=== PATIENT | female | born 1970 | race Caucasian/White ===

== ENCOUNTER 2021-06-10 22:10 | Inpatient (IN) | payer BC, OTHER ==
[2021-06-10] MEDS ORDERED: DEXAMETHASONE SOD PHOSPHATE 10 MG/ML 1 ML VIAL IVP STA (22:26)
--- NOTE | 2021-06-10 22:39 | ED ---
General Adult HPI - General Chief complaint: Shortness of Breath Stated complaint: covid symptoms Time Seen by Provider: 06/10/21 22:12 Source: patient, RN notes reviewed Mode of arrival: ambulatory Limitations: no limitations - History of Present Illness Initial comments: is a 51-year-old female presents emergency Department chief complaint of COVID-19. Patient discussed positive at PCPs office. Patient states that she was placed on some antibiotics states his symptoms are getting worse. Patient states she was supposed to get monoclonal antibodies bolus level scheduled by her PCP. She's been having increasing extreme shortness of breath no fever or chills mild headache and mild body aches and congestion. No history of asthma or COPD. Patient states her pulse ox at home was 82% - Related Data Allergies Allergy/AdvReac Type Severity Reaction Status Date / Time No Known Allergies Allergy Verified 06/10/21 22:18 Review of Systems ROS Statement: Those systems with pertinent positive or pertinent negative responses have been documented in the HPI. ROS Other: All systems not noted in ROS Statement are negative. Past Medical History Past Medical History: No Reported History History of Any Multi-Drug Resistant Organisms: None Reported Additional Past Surgical History / Comment(s): orthopedic Past Psychological History: No Psychological Hx Reported Smoking Status: Never smoker Past Alcohol Use History: Occasional Past Drug Use History: None Reported General Exam Limitations: no limitations General appearance: alert, in no apparent distress Head exam: Present: atraumatic, normocephalic, normal inspection Eye exam: Present: normal appearance, PERRL, EOMI. Absent: scleral icterus, conjunctival injection, periorbital swelling ENT exam: Present: normal exam, normal oropharynx, mucous membranes moist Neck exam: Present: normal inspection, full ROM. Absent: tenderness, meningismus, lymphadenopathy Respiratory exam: Present: normal lung sounds bilaterally. Absent: respiratory distress, wheezes, rales, rhonchi, stridor Cardiovascular Exam: Present: normal rhythm, tachycardia, normal heart sounds. Absent: systolic murmur, diastolic murmur, rubs, gallop, clicks GI/Abdominal exam: Present: soft, normal bowel sounds. Absent: distended, tenderness, guarding, rebound, rigid Neurological exam: Present: alert, oriented X3 Course Vital Signs 06/10/21 06/11/21 22:14 00:18 Temperature 97.7 F Pulse Rate 110 H 97 Respiratory 18 20 Rate Blood Pressure 179/109 130/82 O2 Sat by Pulse 89 L 97 Oximetry EKG Findings - EKG Comments: EKG Findings:: EKG performed at 0:01 sinus tachycardia rate of 101. pr 158 QRS 80 QT/QTC 3:30/427 Medical Decision Making - Medical Decision Making 51-year-old female presents from for shortness breath. Patient has COVID-19 pneumonia with hypoxia will be admitted for further treatment and management. - Lab Data Result diagrams: 06/10/21 22:35 06/10/21 22:35 Lab Results 06/10/21 06/10/21 Range/Units 22:35 22:35 WBC 6.0 (3.8-10.6) k/uL RBC 5.12 (3.80-5.40) m/uL Hgb 10.3 L (11.4-16.0) gm/dL Hct 33.7 L (34.0-46.0) % MCV 65.7 L (80.0-100.0) fL MCH 20.1 L (25.0-35.0) pg MCHC 30.6 L (31.0-37.0) g/dL RDW 15.6 H (11.5-15.5) % Plt Count 199 (150-450) k/uL MPV 9.3 Neutrophils % 71 % Lymphocytes % 18 % Monocytes % 8 % Eosinophils % 0 % Basophils % 1 % Neutrophils # 4.3 (1.3-7.7) k/uL Lymphocytes # 1.1 (1.0-4.8) k/uL Monocytes # 0.5 (0-1.0) k/uL Eosinophils # 0.0 (0-0.7) k/uL Basophils # 0.0 (0-0.2) k/uL Hypochromasia Marked Microcytosis Marked Sodium 134 L (137-145) mmol/L Potassium 3.9 (3.5-5.1) mmol/L Chloride 99 (98-107) mmol/L Carbon Dioxide 22 (22-30) mmol/L Anion Gap 13 mmol/L BUN 18 H (7-17) mg/dL Creatinine 0.92 (0.52-1.04) mg/dL Est GFR (CKD-EPI)AfAm 85 (>60 ml/min/1.73 sqM) Est GFR (CKD-EPI)NonAf 74 (>60 ml/min/1.73 sqM) Glucose 164 H (74-99) mg/dL Calcium 8.7 (8.4-10.2) mg/dL Magnesium 1.9 (1.6-2.3) mg/dL Total Bilirubin 0.4 (0.2-1.3) mg/dL AST 65 H (14-36) U/L ALT 60 H (4-34) U/L Alkaline Phosphatase 85 (38-126) U/L Lactate Dehydrogenase 1137 H (313-618) U/L C-Reactive Protein 8.7 H (<1.0) mg/dL Total Protein 6.9 (6.3-8.2) g/dL Albumin 3.8 (3.5-5.0) g/dL Disposition Clinical Impression: Pneumonia due to COVID-19 virus, Hypoxia Disposition: ADMITTED IP TO THIS HOSP Condition: Fair Referrals: Astrid Piedra MD [Primary Care Provider] - 1-2 days Time of Disposition: 01:15
[2021-06-10 23:16] LABS: Basophils % (A) 1 %; Eosinophils % (A) 0 %; HCT 33.7 % (34.0-46.0); HGB 10.3 gm/dL (11.4-16.0); Hypochromasia Marked; Lymphocytes # (A) 1.1 k/uL (1.0-4.8); Lymphocytes % (A) 18 %; MCH 20.1 pg (25.0-35.0); MCHC 30.6 g/dL (31.0-37.0); MCV 65.7 fL (80.0-100.0); Mean Platelet Volume 9.3; Microcytosis Marked; Monocytes # (A) 0.5 k/uL (0-1.0); Monocytes % (A) 8 %; Neutrophils # (A) 4.3 k/uL (1.3-7.7); Neutrophils % (A) 71 %; Platelet Count 199 k/uL (150-450); RBC 5.12 m/uL (3.80-5.40); RDW 15.6 % (11.5-15.5)
--- NOTE | 2021-06-10 23:29 | XR ---
EXAMINATION TYPE: XR chest 2V DATE OF EXAM: 06/10/2021 COMPARISON: NONE HISTORY: Short of breath TECHNIQUE: 2 view FINDINGS: There is diffuse coarse interstitial pulmonary infiltrates. Heart size is normal. Costophre tomas angles are clear. There are no hilar masses. Mediastinum is normal. IMPRESSION: Diffuse predominantly interstitial pneumonia.
[2021-06-10 23:34] LABS: Albumin 3.8 g/dL (3.5-5.0); C Reactive Protein 8.7 mg/dL (<1.0); Calcium 8.7 mg/dL (8.4-10.2); Magnesium 1.9 mg/dL (1.6-2.3); Potassium 3.9 mmol/L (3.5-5.1); Total Bilirubin 0.4 mg/dL (0.2-1.3); Total Protein 6.9 g/dL (6.3-8.2)
[2021-06-11] MEDS ORDERED: ONDANSETRON 4 MG/2 ML VIAL IVP PRN (01:16)
[2021-06-11] MEDS ORDERED: NALOXONE 0.4 MG/ML 1 ML VIAL IV PRN (01:16)
[2021-06-11] MEDS ORDERED: ACETAMINOPHEN TAB 325 MG TAB PO PRN (01:16)
[2021-06-11] MEDS ORDERED: SODIUM CHLORIDE 0.9% 1,000 ML IV SCH (01:30)
[2021-06-11] MEDS ORDERED: MELATONIN 5 MG TABLET PO PRN (02:34)
--- NOTE | 2021-06-11 02:36 | P.HPIM ---
History of Present Illness H&P Date: 06/11/21 The patient is a 51-year-old female with no known PMH who presented to the emergency room with complaints of COVID-like symptoms. Patient reports that she was initially diagnosed with COVID-19 one week ago at her primary care physician's office and has since had gradually worsening lethargy, myalgias, shortness of breath, nonproductive cough. Patient also reports anosmia and anorexia and decreased oral intake. She denied chest discomfort, diarrhea, headaches, weakness, numbness, tingling. The patient is unvaccinated against COVID 19. Chest x-ray in the emergency room was consistent with atypical pneumonia with EKG showing sinus tachycardia without any ST/T-wave changes noted as reviewed by me. Laboratory evaluation was remarkable for hemoglobin of 10.3 with MCV 65.7, AST 65, ALT 60, and LDH 1137. Upon presentation, the patient's SpO2 was 89% on room air. Review of systems: Pertinent positives and negatives as discussed in HPI, a complete review of systems was performed and all other systems are negative. Physical examination: General: non toxic, no distress, appears at stated age, morbidly obese Derm: no unusual rashes/lesions no unusual ecchymoses, warm, dry Head: atraumatic, normocephalic, symmetric Eyes: EOMI, no lid lag, anicteric sclera, pupils equal round reactive to light ENT: Nose and ears atraumatic, no thrush, no pharyngeal erythema Neck: No thyromegaly, no cervical lymphadenopathy, trachea midline, supple Mouth: no lip lesion, mucus membranes moist Cardiovascular: S1S2 reg, no murmur, positive posterior tibial pulse bilateral, no edema, capillary refill less than 2 seconds Lungs: Diffuse rhonchi without wheezing, no accessory muscle use Abdominal: soft, nontender to palpation, no guarding, no appreciable organomegaly, normal bowel sounds Ext: no gross muscle atrophy, muscle strength 5 out of 5 in all 4 extremities grossly, no contractures, Neuro: CN II-XI grossly intact, light touch intact all 4 extremities, finger to nose within normal limits, Psych: Alert, oriented, appropriate affect Assessment/plan COVID-19 pneumonia with chronic hypoxic respiratory failure -Dexamethasone -Zinc, melatonin, vitamin C, vitamin D -Supplemental oxygen -Pulmonary consult Microcytic anemia -Obtain iron studies Abnormal LFTs -Likely due to ongoing COVID-19 infection -Monitor for now DVT prophylaxis -Lovenox The patient is admitted with an anticipated greater than 2 midnight stay for evaluation of COVID CODE STATUS:Full Code Discussed with: Patient Anticipated discharge date: Unclear Anticipated discharge place: Home Past Medical History Past Medical History: No Reported History History of Any Multi-Drug Resistant Organisms: None Reported Additional Past Surgical History / Comment(s): orthopedic Past Psychological History: No Psychological Hx Reported Smoking Status: Never smoker Past Alcohol Use History: Occasional Past Drug Use History: None Reported - Past Family History Mother Family Medical History: Hypertension Medications and Allergies Allergies Allergy/AdvReac Type Severity Reaction Status Date / Time No Known Allergies Allergy Verified 06/10/21 22:18 Physical Exam Vitals: Vital Signs Temp Pulse Resp BP Pulse Ox 06/11/21 00:18 97 20 130/82 97 06/10/21 22:14 97.7 F 110 H 18 179/109 89 L Intake and Output 06/10/21 06/10/21 06/11/21 14:59 22:59 06:59 Other: Weight 149.685 kg Results CBC & Chem 7: 06/10/21 22:35 06/10/21 22:35 Labs: Abnormal Lab Results - Last 24 Hours (Table) 06/10/21 06/10/21 Range/Units 22:35 22:35 Hgb 10.3 L (11.4-16.0) gm/dL Hct 33.7 L (34.0-46.0) % MCV 65.7 L (80.0-100.0) fL MCH 20.1 L (25.0-35.0) pg MCHC 30.6 L (31.0-37.0) g/dL RDW 15.6 H (11.5-15.5) % Sodium 134 L (137-145) mmol/L BUN 18 H (7-17) mg/dL Glucose 164 H (74-99) mg/dL AST 65 H (14-36) U/L ALT 60 H (4-34) U/L Lactate Dehydrogenase 1137 H (313-618) U/L C-Reactive Protein 8.7 H (<1.0) mg/dL
[2021-06-11] MEDS ORDERED: dexAMETHasone 2 MG TAB PO ONE (03:00)
[2021-06-11 06:02] LABS: HCT 34.4 % (34.0-46.0); HGB 10.7 gm/dL (11.4-16.0); Hypochromasia Moderate; MCH 20.4 pg (25.0-35.0); MCHC 31.2 g/dL (31.0-37.0); MCV 65.4 fL (80.0-100.0); Mean Platelet Volume 9.1; Microcytosis Marked; Platelet Count 218 k/uL (150-450); Poikilocytosis Slight; RBC 5.26 m/uL (3.80-5.40); RDW 15.8 % (11.5-15.5); WBC 3.9 k/uL (3.8-10.6)
[2021-06-11 06:21] LABS: ALT 62 U/L (4-34); AST 51 U/L (14-36); African American GFR (CKD) >90 (>60 ml/min/1.73 sqM); Albumin 3.8 g/dL (3.5-5.0); Albumin/Globulin Ratio 1.2; Alkaline Phosphatase 98 U/L (38-126); Anion Gap 9 mmol/L; Blood Urea Nitrogen 15 mg/dL (7-17); Carbon Dioxide 23 mmol/L (22-30); Chloride 101 mmol/L (98-107); Globulin 3.3 g/dL; Glucose 278 mg/dL (74-99); Non-African American GFR(CKD) 84 (>60 ml/min/1.73 sqM); Potassium 4.4 mmol/L (3.5-5.1); Sodium 133 mmol/L (137-145); Total Bilirubin 0.5 mg/dL (0.2-1.3); Total Protein 7.1 g/dL (6.3-8.2)
[2021-06-11] MEDS: ZINC SULFATE 220 MG CAP PO SCH (08:36)
[2021-06-11] MEDS: CHOLECALCIFEROL 25 MCG (1000 IU) TABLET PO SCH (08:36)
[2021-06-11] MEDS: dexAMETHasone 2 MG TAB PO SCH (08:37)
[2021-06-11] MEDS: ASCORBIC ACID 500 MG TAB PO SCH (08:37)
[2021-06-11] MEDS: ENOXAPARIN 40 MG/0.4 ML SYRINGE SQ SCH (08:38)
[2021-06-11 11:55] LABS: % Iron Saturation 3.07 (12.00-45.00); Ferritin 60.7 ng/mL (10.0-291.0); Iron 11 ug/dL (50-170); Total Iron Binding Capacity 358 ug/dL (228-460)
--- NOTE | 2021-06-11 12:08 | P.CNPUL ---
History of Present Illness Consult date: 06/11/21 Requesting physician: Soren Hoyos Reason for consult: dyspnea, hypoxemia, abnormal CXR/CT Chief complaint: Shortness of breath, cough congestion History of present illness: This is a very pleasant morbidly obese 51-year-old female patient with no significant past medical history. No home medications. On 05/30/2021 she started having symptoms of shortness of breath, cough and congestion. , She was having poor appetite with loss of taste and smell. She tested positive for COVID-19 by her primary care provider. She is not vaccinated. She was scheduled to get monoclonal antibodies but her symptoms progressed and she was found to have O2 saturation 82% and she presented here to the hospital last night for the same. Chest x-ray reveals diffuse bilateral interstitial infiltrates. White count 3.9. Hemoglobin 10.7. Sodium 133. Potassium 4.4. Creatinine 0.82. Glucose 278. AST 51. ALT 62. LDH 1137. C-reactive protein 8.7. She is seen today in consultation in the emergency department. She is currently sitting up on the stretcher. Awake and alert in no acute distress. She is wearing oxygen at 1 L/m per nasal cannula to maintain O2 saturations in the mid 90s. She's been afebrile. Hemodynamically stable. Initiated on Lovenox, Decadron, vitamin supplements. Review of Systems REVIEW OF SYSTEMS: CONSTITUTIONAL: Denies any recent significant weight loss or weight gain. EYES: Denies change in vision. EARS, NOSE, MOUTH, THROAT: Denies headaches, denies sore throat. CARDIOVASCULAR: Denies chest pain, palpitations or syncopal episodes. RESPIRATORY: Positive for shortness of breath, cough, congestion no hemoptysis. GASTROINTESTINAL: Loss of taste and smell, poor appetite, denies abdominal pain GENITOURINARY: Denies hematuria, denies infections. MUSKULOSKELETAL: Denies pain, denies swelling. INTEGUMENTARY: Denies rash, denies eczema. NEUROLOGICAL: Denies recent memory loss, no recent seizure activity. PSYCHIATRIC: Denies anxiety, denies depression. HEMATOLOGIC/LYMPHATIC: Denies anemia, denies enlarged lymph nodes. Past Medical History Past Medical History: No Reported History History of Any Multi-Drug Resistant Organisms: None Reported Additional Past Surgical History / Comment(s): orthopedic Past Psychological History: No Psychological Hx Reported Smoking Status: Never smoker Past Alcohol Use History: Occasional Past Drug Use History: None Reported - Past Family History Mother Family Medical History: Hypertension Medications and Allergies Home Medications Medication Instructions Recorded Confirmed Type No Known Home Medications 06/11/21 06/11/21 History Allergies Allergy/AdvReac Type Severity Reaction Status Date / Time No Known Allergies Allergy Verified 06/11/21 06:50 Physical Exam Vitals: Vital Signs Temp Pulse Resp BP Pulse Ox 06/11/21 08:45 84 18 158/82 95 06/11/21 06:00 98.7 F 86 22 159/90 97 06/11/21 04:00 89 20 156/95 97 06/11/21 02:00 91 22 160/99 99 06/11/21 00:18 97 20 130/82 97 06/10/21 22:14 97.7 F 110 H 18 179/109 89 L Intake and Output 06/10/21 06/11/21 06/11/21 22:59 06:59 14:59 Other: Weight 149.685 kg GENERAL EXAM: Alert, pleasant, morbidly obese 51-year-old female patient, on 1 L nasal cannula, fairly comfortable in no apparent distress. HEAD: Normocephalic. EYES: Normal reaction of pupils, equal size. NOSE: Clear with pink turbinates. THROAT: No erythema or exudates. NECK: No masses, no JVD. CHEST: No chest wall deformity. LUNGS: Equal air entry with bilateral crackles CVS: S1 and S2 normal with no audible murmur, regular rhythm. ABDOMEN: No hepatosplenomegaly, normal bowel sounds, no guarding or rigidity. SPINE: No scoliosis or deformity SKIN: No rashes CENTRAL NERVOUS SYSTEM: No focal deficits, tone is normal in all 4 extremities. EXTREMITIES: There is no peripheral edema. No clubbing, no cyanosis. Peripheral pulses are intact. Results - Laboratory Findings CBC and BMP: 06/11/21 05:30 06/11/21 05:30 Abnormal lab findings: Abnormal Labs 06/10/21 06/10/21 06/11/21 22:35 22:35 05:30 Hgb 10.3 L 10.7 L Hct 33.7 L MCV 65.7 L 65.4 L MCH 20.1 L 20.4 L MCHC 30.6 L RDW 15.6 H 15.8 H Sodium 134 L BUN 18 H Glucose 164 H Iron % Saturation AST 65 H ALT 60 H Lactate Dehydrogenase 1137 H C-Reactive Protein 8.7 H 06/11/21 05:30 Hgb Hct MCV MCH MCHC RDW Sodium 133 L BUN Glucose 278 H Iron 11 L % Saturation 3.07 L AST 51 H ALT 62 H Lactate Dehydrogenase C-Reactive Protein - Diagnostic Findings Chest x-ray: image reviewed Assessment and Plan Assessment: 1 Acute hypoxemic respiratory failure secondary to acute COVID-19 pneumonia. Not vaccinated. Symptoms started 05/30/2021. Outside the window for Remdesivir. On 1 L nasal cannula. 2 Elevated inflammatory markers secondary to above 3 Morbid obesity 4 Anemia 5 Hyperglycemia Plan: The patient was seen and evaluated Outside the window for Remdesivir Continue Decadron, Lovenox, vitamin supplements Titrate the FiO2 as tolerated Follow-up chest x-ray, inflammatory markers in the a.m. We will continue to follow and make further recommendations based on her clinical status I, the cosigning physician, performed a history & physical examination of the patient. Lungs sounds with crackles in the posterior bases. Maintaining good O2 saturations in the 90s on 1 L/m per nasal cannula. I discussed the assessment and plan of care with my nurse practitioner, Loreto Lin. I attest to the above consultation as dictated by her. Time with Patient: Greater than 30
--- NOTE | 2021-06-11 14:17 | P.PN ---
Subjective Patient is 51-year-old female admitted for COVID-19 pneumonia and hypoxia. She is relatively comfortable life now denying any chest pain or shortness of breath any nausea or vomiting. She isn't 2 L nasal cannula. She has history of obesity. Her blood glucose elevated she is on steroids. She reports that her symptoms started about 2 weeks ago around Thanksgiving time. She was scheduled to receive monoclonal antibodies today but she was fou nd to saturating the low 80s and she was referred to emergency department. Chest x-ray showing bilateral diffuse infiltrates. Objective - Vital Signs Vital signs: Vital Signs Temp 97.5 F L 06/11/21 14:00 Pulse 110 H 06/11/21 14:00 Resp 16 06/11/21 14:00 BP 175/91 06/11/21 14:00 Pulse Ox 93 L 06/11/21 14:00 Intake & Output 06/10/21 06/11/21 06/11/21 18:59 06:59 18:59 Weight 149.685 kg - Exam Awake alert oriented 3 No acute distress Head and neck: No facial asymmetry no neck masses no JVD oropharyngeal mucosa is clear Lungs: Breath sounds are diminished wheezing appreciated Cardiovascular regular rhythm and rate S1-S2 Abdomen soft nontender nondistended bowel sounds present and no flank tenderness Extremities no peripheral edema no cyanosis tenderness - Labs CBC & Chem 7: 06/11/21 05:30 06/11/21 05:30 Labs: Abnormal Lab Results - Last 24 Hours (Table) 06/10/21 06/10/21 06/11/21 Range/Units 22:35 22:35 05:30 Hgb 10.3 L 10.7 L (11.4-16.0) gm/dL Hct 33.7 L (34.0-46.0) % MCV 65.7 L 65.4 L (80.0-100.0) fL MCH 20.1 L 20.4 L (25.0-35.0) pg MCHC 30.6 L (31.0-37.0) g/dL RDW 15.6 H 15.8 H (11.5-15.5) % Sodium 134 L (137-145) mmol/L BUN 18 H (7-17) mg/dL Glucose 164 H (74-99) mg/dL Iron (50-170) ug/dL % Saturation (12.00-45.00) AST 65 H (14-36) U/L ALT 60 H (4-34) U/L Lactate Dehydrogenase 1137 H (313-618) U/L C-Reactive Protein 8.7 H (<1.0) mg/dL 06/11/21 Range/Units 05:30 Hgb (11.4-16.0) gm/dL Hct (34.0-46.0) % MCV (80.0-100.0) fL MCH (25.0-35.0) pg MCHC (31.0-37.0) g/dL RDW (11.5-15.5) % Sodium 133 L (137-145) mmol/L BUN (7-17) mg/dL Glucose 278 H (74-99) mg/dL Iron 11 L (50-170) ug/dL % Saturation 3.07 L (12.00-45.00) AST 51 H (14-36) U/L ALT 62 H (4-34) U/L Lactate Dehydrogenase (313-618) U/L C-Reactive Protein (<1.0) mg/dL Assessment and Plan Plan: #COVID-19 pneumonitis detected hypoxic respiratory failure Duration of symptoms: About 2 weeks prior to admission Chest x-ray: Bilateral diffuse interstitial infiltrates Oxygen requirements: 12 liters nasal cannula Started on dexamethasone, multivitamins bronchodilators, pulmonary toilet, incentive spirometer Evaluated by pulmonary service, recommended against Remdesevir as she has been out the window Continue oxygen supplementation increase activity and weaned down as tolerated Monitor inflammatory markers, we will check d-dimer #Hyperglycemia Ordered blood glucose monitoring, diabetic diet and A1c #Obesity Encourage out of bed to incentive spirometer Patient is a full code, more than 2 mn hospital stay
[2021-06-11 17:28] LABS: Glucose,Whole Blood 239 mg/dL (75-99)
[2021-06-11 21:19] LABS: Glucose,Whole Blood 275 mg/dL (75-99)
[2021-06-12 07:42] LABS: Glucose,Whole Blood 256 mg/dL (75-99)
--- NOTE | 2021-06-12 07:43 | XR ---
EXAMINATION TYPE: XR chest 1V DATE OF EXAM: 06/12/2021 COMPARISON: 06/10/2021 INDICATION: Pneumonia TECHNIQUE: Single frontal view of the chest is obtained. FINDINGS: The heart size is normal. The pulmonary vasculature is normal. Perihilar consolidations are present. Patchy diffuse infiltrates are in the periphery. Findings are s lightly improved over the interval. IMPRESSION: 1. Perihilar and patchy peripheral infiltrates can be compatible with atypical pneumonia. Findings ar e improved from comparison.
[2021-06-12 08:14] VITALS: BP 180/98; PULSE 89; RESP 14; TEMP 97.5
[2021-06-12] MEDS: CHOLECALCIFEROL 25 MCG (1000 IU) TABLET PO SCH (08:32)
[2021-06-12] MEDS: ENOXAPARIN 40 MG/0.4 ML SYRINGE SQ SCH (08:32)
[2021-06-12] MEDS: ZINC SULFATE 220 MG CAP PO SCH (08:33)
[2021-06-12] MEDS: ASCORBIC ACID 500 MG TAB PO SCH (08:33)
[2021-06-12] MEDS: dexAMETHasone 2 MG TAB PO SCH (08:33)
[2021-06-12 11:34] LABS: HCT 37.4 % (37.2-46.3); HGB 10.4 g/dL (12.0-15.0); MCH 19.2 pg (27.0-32.0); MCHC 27.8 g/dL (32.0-37.0); Mean Platelet Volume 12.1 fL (9.5-12.2); Microcytosis (M) 2+; Platelet Count 339 X 10*3/uL (140-440); RBC 5.42 X 10*6/uL (4.10-5.20); RDW 17.2 % (11.5-14.5); WBC 7.66 X 10*3/uL (4.50-10.00)
--- NOTE | 2021-06-12 12:15 | P.PN ---
Subjective Progress Note Date: 06/12/21 Principal diagnosis: CoVID pneumonia This is a very pleasant morbidly obese 51-year-old female patient with no significant past medical history. No home medications. On 05/30/2021 she started having symptoms of shortness of breath, cough and congestion. , She was having poor appetite with loss of taste and smell. She tested positive for COVID-19 by her primary care provider. She is not vaccinated. She was scheduled to get monoclonal antibodies but her symptoms progressed and she was found to have O2 saturation 82% and she presented here to the hospital last night for the same. Chest x-ray reveals diffuse bilateral interstitial infiltrates. White count 3.9. Hemoglobin 10.7. Sodium 133. Potassium 4.4. Creatinine 0.82. Glucose 278. AST 51. ALT 62. LDH 1137. C-reactive protein 8.7. She is seen today in consultation in the emergency department. She is currently sitting up on the stretcher. Awake and alert in no acute distress. She is wearing oxygen at 1 L/m per nasal cannula to maintain O2 saturations in the mid 90s. She's been afebrile. Hemodynamically stable. Initiated on Lovenox, Decadron, vitamin supplements. The patient is seen today 06/12/2021 in follow-up on the regular medical floor. She is currently sitting up at the bedside. Awake and alert in no acute distress. She is using a bit easier today compared to yesterday. Maintaining good O2 saturations in the 90s on 1-2 L of oxygen, she does desaturate to 85% on room air with a brief walk. Recovers to the 90s on 2 L. Today continues to show perihilar patchy bilateral infiltrates. Improved compared to previous. White count 7.66. Hemoglobin 10.4. D-dimer 0.4. She is continued on Decadron, Lovenox, vitamin supplements. Objective - Vital Signs Vital signs: Vital Signs Temp 97.5 F L 06/12/21 08:00 Pulse 89 06/12/21 08:00 Resp 14 06/12/21 08:00 BP 180/98 06/12/21 08:00 Pulse Ox 88 L 06/12/21 08:00 Intake & Output 06/11/21 06/12/21 06/12/21 18:59 06:59 18:59 Output Total 0 Balance 0 Weight 149.685 kg Output: Emesis 0 - Exam GENERAL EXAM: Alert, pleasant, morbidly obese 51-year-old female patient, on 1 L nasal cannula, fairly comfortable in no apparent distress. HEAD: Normocephalic. EYES: Normal reaction of pupils, equal size. NOSE: Clear with pink turbinates. THROAT: No erythema or exudates. NECK: No masses, no JVD. CHEST: No chest wall deformity. LUNGS: Equal air entry with bilateral crackles CVS: S1 and S2 normal with no audible murmur, regular rhythm. ABDOMEN: No hepatosplenomegaly, normal bowel sounds, no guarding or rigidity. SPINE: No scoliosis or deformity SKIN: No rashes CENTRAL NERVOUS SYSTEM: No focal deficits, tone is normal in all 4 extremities. EXTREMITIES: There is no peripheral edema. No clubbing, no cyanosis. Peripheral pulses are intact. - Labs CBC & Chem 7: 06/12/21 07:00 06/11/21 05:30 Labs: Abnormal Lab Results - Last 24 Hours (Table) 06/11/21 06/11/21 06/12/21 Range/Units 17:27 21:17 07:00 RBC 5.42 H (4.10-5.20) X 10*6/uL Hgb 10.4 L (12.0-15.0) g/dL MCV 69.0 L (80.0-97.0) fL MCH 19.2 L (27.0-32.0) pg MCHC 27.8 L (32.0-37.0) g/dL RDW 17.2 H (11.5-14.5) % POC Glucose (mg/dL) 239 H 275 H (75-99) mg/dL 06/12/21 Range/Units 07:20 RBC (4.10-5.20) X 10*6/uL Hgb (12.0-15.0) g/dL MCV (80.0-97.0) fL MCH (27.0-32.0) pg MCHC (32.0-37.0) g/dL RDW (11.5-14.5) % POC Glucose (mg/dL) 256 H (75-99) mg/dL Assessment and Plan Assessment: 1 Acute hypoxemic respiratory failure secondary to acute COVID-19 pneumonia. Not vaccinated. Symptoms started 05/30/2021. Outside the window for Remdesivir. On 1 L nasal cannula. 2 Elevated inflammatory markers secondary to above 3 Morbid obesity, BMI 50.2 kg per metered square 4 Anemia 5 Hyperglycemia Plan: The patient was seen and evaluated She is quite anxious to go home today Cleared for discharge from the pulmonary standpoint Does require home oxygen with O2 saturation 85% on room air, recovered to 90s on 2 L Complete a 10 day course of Decadron, continue vitamin supplements Follow-up in our office in 3-4 weeks' time Encouraged to return to the emergency room should her symptoms worsen I, the cosigning physician, performed a history & physical examination of the patient. Lungs sounds with crackles in the posterior bases. Maintaining good O2 saturations in the 90s on 1 L/m per nasal cannula. I discussed the assessment and plan of care with my nurse practitioner, Loreto Lin. I attest to the above note as dictated by her.
[2021-06-12 12:24] LABS: African American GFR (CKD) 87.1 (60.0-200.0); Albumin 3.9 g/dL (3.8-4.9); Albumin/Globulin Ratio 1.35 (1.60-3.17); Anion Gap 17.3 mmol/L (10.00-18.00); BUN/Creat Ratio 22.25 Ratio (12.00-20.00); C Reactive Protein 5.1 mg/dL (0.00-0.80); Calcium 9.5 mg/dL (8.7-10.3); Carbon Dioxide 18.9 mmol/L (20.0-27.5); Globulin 2.9 g/dL (1.6-3.3); Magnesium 2.2 mg/dL (1.5-2.4); Non-African American GFR(CKD) 75.2 (60.0-200.0); Potassium 4.5 mmol/L (3.5-5.5); Total Bilirubin 0.2 mg/dL (0.30-1.20); Total Protein 6.7 g/dL (6.2-8.2)
--- NOTE | 2021-06-12 13:39 | P.DS ---
Providers Date of admission: 06/11/21 01:32 Attending physician: Soren Hoyos MD Consults: 06/11/21 01:16 Consult Physician Urgent Consulting Provider: Rafiq Levi Consult Reason/Comments: COVID-19, hypoxia Do you want consulting provider notified?: Yes Primary care physician: Astrid Piedra MD Hospital Course: Reason for admission 51-year-old female came to emergency department for ablation of shortness of breath. Diagnosed with COVID-19 one week prior to admission. Gradually her shortness of breath worsened. She was having nonproductive cough myalgias and URI-like symptoms. Denied any chest pain diarrhea headache. In the MRSA department chest x-ray showed atypical pneumonia bilateral. Oxygen saturation was 89% on room air. She was admitted for further for treatment. Hospital course Patient was started on dexamethasone, bronchodilators, supplemental oxygen, multivitamin. She was evaluated by pulmonary service and felt to be out the window for Remdesevir. D-dimer was within normal limits. With the above treatment or referral her condition improved. She was maintaining good saturations on 1 L/m nasal cannula. On the day of discharge she was not feeling short of breath, her appetite improved and she was tolerating diet. She was cleared for discharge home with pulmonary service. Plan to finish dexamethasone. Home oxygen test was performed and she was discharged home with supplemental oxygen 1 L at rest and up to 2 L with exertion. She was advised to follow up in primary care physician office and pulmonary office in 12 weeks at which time her oxygen needs will be reassessed. 45 minutes spent on this discharge. Assessment: Physical exam: Patient is up to the chair, she is currently on room air feeling comfortable , eating breakfast. Awake alert oriented 3 No acute distress Head and neck: No facial asymmetry no neck masses no JVD oropharyngeal mucosa is clear Lungs: Normal breath sounds, no wheezing rhonchi or crackles Cardiovascular regular rhythm and rate S1-S2 Abdomen soft nontender nondistended bowel sounds present and no flank tenderness Extremities no peripheral edema no cyanosis tenderness Patient Condition at Discharge: Good Plan - Discharge Summary Discharge Rx Participant: No New Discharge Prescriptions: New dexAMETHasone ORAL [Hexadrol] 6 mg PO DAILY 7 Days #21 tab Albuterol Inhaler [Ventolin Hfa Inhaler] 2 puff INHALATION RT-QID PRN #8 gm PRN Reason: Wheezing Discharge Medication List Albuterol Inhaler [Ventolin Hfa Inhaler] 2 puff INHALATION RT-QID PRN #8 gm 06/12/21 [Rx] dexAMETHasone ORAL [Hexadrol] 6 mg PO DAILY 7 Days #21 tab 06/12/21 [Rx] Follow up Appointment(s)/Referral(s): [facility] [NON-STAFF] - As Needed (Supplier of Home Oxygen) Astrid Piedra MD [Primary Care Provider] - 1-2 days Patient Instructions/Handouts: Using Oxygen at Home (DC) Activity/Diet/Wound Care/Special Instructions: Diabetic diet Drink plenty of fluids Monitor blood glucose Discharge/Stand Alone Forms: Personal [employer]ia [employer]ender Discharge Disposition: HOME SELF-CARE
== END 2021-06-12 12:13 | disposition home or self-care (01) | DRG 177 ==
LOC: EC 22:10 → 4SSUR 06-11 01:32 → 6NMEDSUR 06-11 12:29
PROVIDERS: ADMIT Internal Medicine; ATTEND Internal Medicine
DX: U07.1 COVID-19 (principal); J12.82 Pneumonia due to coronavirus disease 2019; J96.01 Acute respiratory failure with hypoxia; Z68.43 Body mass index [BMI] 50.0-59.9, adult; E66.01 Morbid (severe) obesity due to excess calories; D50.9 Iron deficiency anemia, unspecified; R73.9 Hyperglycemia, unspecified; Z82.49 Family history of ischemic heart disease and other diseases of the circulatory system
CPT/HCPCS: 36415; 71045; 71046; 80053; 82728; 83036; 83540; 83550; 83615; 83735; 85025; 85027; 85379; 86140; 93005; 96374; 99285

== ENCOUNTER → 2025-01-23 | Outpatient (CLI) | payer OTHER ==
--- NOTE | 2025-01-27 07:44 | CT ---
EXAMINATION TYPE: CT lumbar spine wo con DATE OF EXAM: 01/23/2025 11:13 AM COMPARISON: None. CLINICAL INDICATION: Female, 55 years old with history of M54.50 LOW BACK PAIN, LOW BACK PAIN, pain TECHNIQUE: CT of the lumbar spine is performed on a spiral scan at 3 mm thick sections. Reconstructed images are performed in the coronal and sagittal planes. Contrast used: mL of , (none if empty) Oral contrast used: (none if empty) CT DLP: 1870.2 mGycm, Automated exposure control for dose reduction was used. FINDINGS: T12-L1: No focal disc herniation or significant disc bulge is evident. No spinal canal stenosis or neural foraminal stenosis is present. L1-L2: There is mild disc bulge present with anterior thecal sac contact. No AP spinal canal stenosis evident. Neural foramen are patent. Disc height is preserved. L2-L3: No focal disc herniation or significant disc bulge is evident. No spinal canal stenosis or n eural foraminal stenosis is present. L3-L4: Disc bulge is present with moderate anterior thecal sac compression. No AP spinal canal stenos is is present. There is moderate bilateral foraminal narrowing. L4-L5: Vacuum disc phenomenon is present. Disc bulge has mild to moderate anterior thecal sac lili fe. Some disc space narrowing is present. Diffuse spinal canal narrowing is present. There is moder ate bilateral foraminal stenosis. Facet degenerative change with vacuum phenomenon is on the right. L5-S1: Minimal disc bulge is present. No AP spinal canal stenosis present. Facet degenerative changes are present. There is severe bilateral foraminal stenosis. Vertebral alignment appears normal. IMPRESSION: Moderate to severe foraminal stenosis lower lumbar spine greatest at the L5-S1 level. Correlate with radicular symptoms. 2. Spinal canal narrowing secondary to disc bulging and facet hypertrophy L4-5. [facility], , 01/27/2025 7:41 AM
== END | disposition home or self-care (01) ==
LOC: RADCTMAIN 10:33
PROVIDERS: ATTEND Orthopaedic Surgery
DX: M48.061 Spinal stenosis, lumbar region without neurogenic claudication (principal); M51.360 Other intervertebral disc degeneration, lumbar region with discogenic back pain only
CPT/HCPCS: 72131

== ENCOUNTER → 2025-02-02 | Outpatient (CLI) | payer OTHER ==
--- NOTE | 2025-02-03 11:04 | MR ---
INDICATION: Patient age:Female; 55 years old; Reason for study: M47.26 M48.062 M43.16; [facility]. COMPARISONS: CT lumbar spine 01/24/2020, lumbar spine radiographs 01/16/2025. TECHNIQUE: Multi planar, multi sequence imaging was performed utilizing: T1-weighted, T2-weighted, a nd turbo inversion recovery imaging of the lumbar spine. The patient was not given contrast. FINDINGS: The lumbar vertebral bodies do have preserved heights. Minimal grade 1 anterolisthesis of L4 on L5 without evidence of pars defects. Minimal multilevel disc desiccation is present. No signifi cant disc height loss. The conus medullaris and the distal spinal cord do appear unremarkable with re gards to their signal intensity and morphology. L1-L2: No significant disc pathology is identified. The spinal canal and neural foramen are patent. L2-L3: No significant disc pathology is identified. The spinal canal and neural foramen are patent. L3-L4: No significant disc pathology is identified. The spinal canal is patent. Bilateral facet arth ropathy. Mild bilateral neural foraminal stenosis. L4-L5: Broad-based disc bulge with ligamentum flavum buckling and bilateral facet arthropathy. Minima l spinal canal stenosis. Moderate bilateral neural foraminal stenosis. L5-S1: Left subarticular/foraminal zone disc protrusion with annular fissure. Effacement of the exiti ng left S1 nerve root. No significant spinal canal stenosis. Bilateral facet arthropathy. Moderate to severe left neural foraminal stenosis. Moderate right neural foraminal stenosis. Other significant findings: None. IMPRESSION: 1. L5-S1 left subarticular/foraminal zone disc protrusion with annular fissure. This effaces the exi ting left S1 nerve root. Bilateral facet arthropathy at this level with moderate to severe left neura l foraminal stenosis and moderate right neural foraminal stenosis. 2. 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 [facility], , 02/03/2025 11:01 AM
== END | disposition home or self-care (01) ==
LOC: RADMRIMAIN 17:18
PROVIDERS: ATTEND Orthopaedic Surgery
DX: M47.26 Other spondylosis with radiculopathy, lumbar region (principal); M48.062 Spinal stenosis, lumbar region with neurogenic claudication; M99.73 Connective tissue and disc stenosis of intervertebral foramina of lumbar region; M51.16 Intervertebral disc disorders with radiculopathy, lumbar region
CPT/HCPCS: 72148